=== PATIENT | female | born 1965 | race Caucasian/White ===

== ENCOUNTER 2020-03-22 04:47 | Day surgery (SDC) | payer OTHER ==
[2020-03-20 16:35] VITALS: BMI 23.0
[2020-03-22] MEDS ORDERED: ROCURONIUM BROMIDE 50 MG/5 ML SYRINGE ONE (07:23)
[2020-03-22] MEDS ORDERED: MIDAZOLAM HCL 2 MG/2 ML SINGLE DOSE VIAL ONE ×3 (07:24→07:29)
[2020-03-22] MEDS ORDERED: PROPOFOL 20 ML ONE (07:24)
[2020-03-22] MEDS ORDERED: SUCCINYLCHOLINE CHLORIDE 200 MG/10 ML SYRINGE ONE (07:25)
[2020-03-22] MEDS ORDERED: EPHEDRINE SULFATE/0.9% NACL/PF 50 MG/10 ML SYRINGE NR ONE (07:26)
[2020-03-22] MEDS ORDERED: DEXAMETHASONE SOD PHOSPHATE/PF 10 MG/ML SDV ONE (07:27)
--- NOTE | 2020-03-22 08:12 | HP ---
Admitting History and Physical - Admission Chief Complaint: bilateral inguinal pain History of Present Illness: 54 y.o. female with bilateral ingjuinal pain X [address] A/P shows bilateral fat containing inguinal hernias. History Source: Patient Limitations to Obtaining History: No Limitations - Past Medical History ...LMP Comment: PTL HYSTERECTOMY - Past Surgical History Past Surgical History: Yes: Hysterectomy Additional Past Surgical History: Bladder lift Abdominoplasty - Smoking History Smoking history: Never smoked Have you smoked in the past 12 months: No Home Medications - Allergies Allergies/Adverse Reactions: Allergies Allergy/AdvReac Type Severity Reaction Status Date / Time No Known Allergies Allergy Verified 03/22/20 06:50 - Home Medications Home Medications: Ambulatory Orders Multivitamin [Multiple Vitamins] 1 each PO DAILY 03/20/20 Review of Systems - Review of Systems Eyes: reports: No Symptoms HENT: reports: No Symptoms Neck: reports: No Symptoms Cardiovascular: reports: No Symptoms Respiratory: reports: No Symptoms Gastrointestinal: reports: Other (bilateral inguinal pain) Musculoskeletal: reports: Back Pain Neurological: reports: No Symptoms Hematology/Lymphatic: reports: No Symptoms Physical Examination Vital Signs: Vital Signs Temperature 98.0 F 03/22/20 06:48 Pulse Rate 73 03/22/20 06:48 Respiratory Rate 20 03/22/20 06:48 Blood Pressure 118/72 03/22/20 06:48 O2 Sat by Pulse Oximetry (%) 99 03/22/20 06:48 Constitutional: Yes: Well Nourished Eyes: Yes: Conjunctiva Clear HENT: Yes: Normocephalic Neck: Yes: Supple Cardiovascular: Yes: Regular Rate and Rhythm Respiratory: Yes: CTA Bilaterally Gastrointestinal: Yes: Soft, Hernia (bilateral inguinal impulse on coughing, L > R), Other (Abdominoplasty scar) ...Rectal Exam: Yes: Deferred Imaging - Results Cat Scan: Report Reviewed, Image Reviewed Problem List - Problems (1) Bilateral inguinal hernia Assessment/Plan: Robotic bilateral inguinal hernia repair with mesh, possible open Code(s): K40.20 - BI INGUINAL HERNIA, W/O OBST OR GANGRENE, NOT SPCF RECUR
[2020-03-22] MEDS ORDERED: ceFAZolin SODIUM 1 GM VIAL ONE ×2 (08:18→11:40)
[2020-03-22] MEDS ORDERED: ceFAZolin SODIUM 1 GM VIAL IVPB ONE (08:20)
[2020-03-22] MEDS ORDERED: BUPIVACAINE HCL/PF 0.5% (5 MG/ML) 30 ML VIAL IJ ONE (08:34)
[2020-03-22] MEDS ORDERED: oxyCODONE HCL 5 MG TABLET PO PRN (10:31)
[2020-03-22] MEDS ORDERED: ONDANSETRON 4 MG/2 ML VIAL IVPUSH PRN (10:31)
--- NOTE | 2020-03-22 10:34 | OP ---
Operative Note - Note: Operative Date: 03/22/20 Pre-Operative Diagnosis: Bilateral inguinal hernias Operation: Robotic bilateral inguinal hernia repair with mesh Findings: bilateral fat containing indirect inguinal hernias Implants: progrip mesh x 2 Post-Operative Diagnosis: Same as Pre-op Surgeon: Dung Lange Resolution Rep: Margy Spivey Anesthesia: General Estimated Blood Loss (mls): 15 Operative Report Dictated: Yes
[2020-03-22] MEDS ORDERED: LACTATED RINGERS SOLUTION 1,000 ML IV SCH (10:45)
--- NOTE | 2020-03-22 11:13 | SURG ---
Surgery University Extension Specialist Note University Extension Specialist: Margy Spivey PA-C Date of Service: 03/22/20 Diagnosis: Bilateral inguinal hernias Procedure: Robotic bilateral inguinal hernia repair with mesh I was present for the entirety of the operative procedure. For further detail, please refer to operative report. Visit type - Case Type Case Type: Scheduled - Emergency Emergency Visit: No - New patient This patient is new to me today: Yes Date on this admission: 03/22/20
[2020-03-22] MEDS ORDERED: DEXAMETHASONE SOD PHOSPHATE 4 MG/1 ML VIAL ONE (11:40)
--- NOTE | 2020-03-22 12:06 | OP ---
DATE OF OPERATION: 03/22/2020 PROCEDURE: Robotic-assisted bilateral inguinal hernia repair with mesh. PREOPERATIVE DIAGNOSIS: Bilateral inguinal hernias. POSTOPERATIVE DIAGNOSIS: Bilateral inguinal hernias. SURGEON: Dung Lange MD FISCAL ECONOMIST: Margy Spivey PA-C ANESTHESIA: General endotracheal. FINDINGS AND PROCEDURE: This is a 54-year-old female who presents with about 12-month history of bilateral inguinal pain for which a CAT scan of the abdomen and pelvis showed bilateral inguinal hernias containing fat, with the left greater than the right side. Due to the pain, patient was advised elective inguinal hernia repair and consent was obtained after discussing the risks, benefits, and alternatives to the procedure. Patient was brought to the operating room and placed in supine position, and general endotracheal anesthesia was administered. The abdomen was prepped and draped in the usual sterile fashion. Using the Veress needle technique, pneumoperitoneum was established via an 8-mm supraumbilical incision. This was followed by insertion of an 8-mm blunt port. The peritoneal cavity was then carefully inspected using the 30-degree 3-D laparoscope. No inadvertent injury was noted. Patient was then placed in Trendelenburg position. Two 8-mm ports were inserted 8 cm away on each side of the midline port under direct vision. The robotic arms were docked and the target organ was set. The fenestrated bipolar forceps were inserted at the left-sided port, and the EndoWrist ang were inserted at the right-sided port. The undersigned then scrubbed out to commence the console part of the procedure. The left inguinal hernia was addressed first by incising the peritoneum at the level of the anterior superior iliac spine, taking care not to injure the inferior epigastric artery. A pocket was then created and the preperitoneal space was entered. Dissection was carried down towards the underside of the symphysis pubis medially and to the anterior-superior iliac spine laterally. Inferiorly, the dissection was carried towards the psoas muscle. A moderate-sized indirect left inguinal hernia was noted containing moderate amount of preperitoneal fat. This was then completely reduced, and the round ligament was transected as close to its insertion to the symphysis pubis using the EndoWrist ang connected to monopolar cautery. After dissection was deemed satisfactory, a left-sided ProGrip mesh was deployed to cover the internal ring, the femoral canal, as well as the inguinal floor. After deployment was deemed satisfactory, the pocket was closed with continuous V-Loc 2-0 absorbable sutures. The right-sided inguinal hernia was then repaired using the same technique. A preperitoneal pocket was created at the level of the superior iliac spine, and dissection was carried out towards the underside of the symphysis pubis and laterally towards the anterior-superior iliac spine. Inferiorly, dissection was carried down to the psoas muscle. A small amount of preperitoneal fat was reduced from the indirect hernia, and the round ligament was transected as well. A right-sided ProGrip mesh was then deployed to cover the internal ring, the inguinal floor, and the femoral canal. The pocket was also closed using continuous V-Loc 2-0 absorbable suture. The peritoneal cavity was again carefully inspected, and it was noted to be free of active bleeding. The robotic arms were undocked and the pneumoperitoneum was evacuated. The ports were then removed, and the wounds were closed with subcuticular Biosyn 4-0 sutures reinforced with Dermabond. Patient was successfully extubated and transferred to the postanesthesia care unit in satisfactory condition. ESTIMATED BLOOD LOSS: About 15 mL. WOUND CLASS: Clean. ANTIBIOTICS: The patient received 1 g of Ancef prior to the start of the procedure Yamini [id number] MTDD
[2020-03-22 13:28] VITALS: BP 114/88; PULSE 86; TEMP 97.5
== END 2020-03-22 13:20 | disposition home or self-care (01) ==
LOC: JASU-SURG 04:47
PROVIDERS: ATTEND Surgery
PROC: 8E0W4CZ Robotic Assisted Procedure of Trunk Region, Percutaneous Endoscopic Approach (ICD-10-PCS; 2020-03-22)
PROC: 0YUA4JZ Supplement Bilateral Inguinal Region with Synthetic Substitute, Percutaneous Endoscopic Approach (ICD-10-PCS; principal; 2020-03-22 08:00)
DX: K40.20 Bilateral inguinal hernia, without obstruction or gangrene, not specified as recurrent (principal)
CPT/HCPCS: 49650; S2900; 94760